=== PATIENT | male | born 1985 | race Native Hawaiian/Other Pacific Islander ===

== ENCOUNTER → 2021-10-17 15:28 | Outpatient (CLI) | payer BC, SELFPAY ==
--- NOTE | ~2021-10-17 | US_ITS ---
EXAMINATION: US scrotum doppler DATE: 10/17/2021 15:56 INDICATION: Right testicular pain and swelling. TECHNIQUE: Grayscale and Doppler ultrasound images of the testes were obtained. COMPARISON: None. FINDINGS: The right testis measures 3.1 x 1.8 x 4.0 cm. The left testis measures 2.9 x 1.8 x 3.2 cm. There is normal vascular flow to both testes. The right epididymis is normal. The left epididymis is normal with normal vascular flow. There is a large right-sided hydrocele. IMPRESSION: 1. Large right-sided hydrocele. Reviewed, dictated and finalized at location A.
== END ==
PROVIDERS: Visit Provider Nurse Practitioner
DX: N50.819 Testicular pain, unspecified (principal); N43.3 Hydrocele, unspecified
CPT/HCPCS: 76870; 93976